=== PATIENT | female | born 1960 | race Caucasian/White ===

== ENCOUNTER 2020-09-22 11:40 | Day surgery (SDC) | payer BC, OTHER ==
[2020-09-20 17:43] VITALS: BMI 27.0
[~2020-09-22 11:40] MED LIST: ONDANSETRON 4 MG/2 ML VIAL IVPUSH PRN; oxyCODONE HCL 5 MG TABLET PO PRN
[2020-09-22] MEDS ORDERED: LACTATED RINGERS SOLUTION 1,000 ML IV SCH (11:45)
[2020-09-22] MEDS ORDERED: MIDAZOLAM HCL 2 MG/2 ML SINGLE DOSE VIAL ONE (12:40)
[2020-09-22] MEDS ORDERED: PROPOFOL 20 ML ONE ×4 (12:51)
[2020-09-22 13:44] VITALS: TEMP 97.6
[2020-09-22 14:20] VITALS: BP 125/77; PULSE 76
== END 2020-09-22 14:30 | disposition home or self-care (01) ==
LOC: FASU 11:40
PROVIDERS: ATTEND Orthopaedic Surgery Hand Surgery
PROC: 0LN60ZZ Release Left Lower Arm and Wrist Tendon, Open Approach (ICD-10-PCS; principal; 2020-09-22 13:07)
DX: M65.4 Radial styloid tenosynovitis [de Quervain] (principal)

== ENCOUNTER 2021-08-10 06:57 | Day surgery (SDC) | payer BC, OTHER ==
[2021-07-27 15:19] VITALS: BMI 28.6
[2021-08-10] MEDS ORDERED: oxyCODONE HCL 5 MG TABLET PO PRN ×2 (07:28)
[2021-08-10] MEDS ORDERED: ONDANSETRON 4 MG/2 ML VIAL IVPUSH PRN (07:28)
[2021-08-10] MEDS ORDERED: LACTATED RINGERS SOLUTION 1,000 ML IV SCH (07:30)
[2021-08-10] MEDS ORDERED: KETOROLAC TROMETHAMINE 30 MG/1 ML VIAL ONE (07:51)
[2021-08-10] MEDS ORDERED: PROPOFOL 20 ML ONE ×2 (07:51)
[2021-08-10] MEDS ORDERED: SUCCINYLCHOLINE CHLORIDE 200 MG/10 ML SYRINGE ONE (07:51)
[2021-08-10] MEDS ORDERED: LIDOCAINE HCL/PF 2% SDV 5ML VIAL ONE (07:51)
[2021-08-10] MEDS ORDERED: MIDAZOLAM HCL 2 MG/2 ML SINGLE DOSE VIAL ONE ×3 (07:57→08:54)
[2021-08-10] MEDS ORDERED: fentaNYL CITRATE 250 MCG/5 ML VIAL ONE (07:57)
[2021-08-10 09:27] VITALS: TEMP 97.1
[2021-08-10 09:51] VITALS: BP 134/76; PULSE 58
== END 2021-08-10 10:00 | disposition home or self-care (01) ==
LOC: FASU 06:57
PROVIDERS: ATTEND Orthopaedic Surgery Hand Surgery
PROC: 0LN70ZZ Release Right Hand Tendon, Open Approach (ICD-10-PCS; 2021-08-10)
PROC: 0LN70ZZ Release Right Hand Tendon, Open Approach (ICD-10-PCS; principal; 2021-08-10 08:54)
DX: M65.311 Trigger thumb, right thumb (principal); M65.331 Trigger finger, right middle finger